=== PATIENT | female | born 1965 | race Asian ===

== ENCOUNTER 2018-10-07 15:53 | Inpatient (IN) | payer OTHER ==
[~2018-10-07] VITALS: Ht 165.1 cm; Wt 72.1 kg
[2018-10-07] MEDS ORDERED: CEFAZOLIN SOD 2 GM in D5W 50 ML IV ONE (16:45)
[2018-10-07] MEDS ORDERED: fentaNYL CITRATE/PF 100 MCG/2 ML AMP IVP PRN (18:30)
[2018-10-07] MEDS ORDERED: KETOROLAC TROMETHAMINE 30 MG VIAL IVP PRN (18:30)
[2018-10-07] MEDS ORDERED: ONDANSETRON HCL 4 MG/2 ML VIAL IVP PRN (18:30)
[2018-10-07] MEDS ORDERED: LIDOCAINE 2%, 20 ML MDV ONE (19:50)
[2018-10-07] MEDS ORDERED: LABETALOL 100 MG/ 20ML VIAL ONE (19:50)
[2018-10-07] MEDS ORDERED: KETOROLAC TROMETHAMINE 30 MG VIAL ONE (19:50)
[2018-10-07] MEDS ORDERED: NS IRRIG SOLN 1000 ML IR ONE (19:50)
[2018-10-07] MEDS ORDERED: fentaNYL CITRATE/PF 100 MCG/2 ML AMP ONE ×3 (19:50→20:55)
[2018-10-07] MEDS ORDERED: NEOSTIGMINE METHYLSULFATE 1 MG/ML, 10 ML VIAL ONE (19:50)
[2018-10-07] MEDS ORDERED: ONDANSETRON HCL 4 MG/2 ML VIAL ONE (19:50)
[2018-10-07] MEDS ORDERED: BUPIVACAINE /EPINEPHRINE/PF 0.25% 30 ML VIAL INJ ONE (19:50)
[2018-10-07] MEDS ORDERED: GLYCOPYRROLATE 0.2 MG/ML VIAL ONE (19:50)
[2018-10-07] MEDS ORDERED: BUPIVACAINE /PF 0.5% 30 ML VIAL ONE (19:50)
[2018-10-07] MEDS ORDERED: LR 1,000 ML IV.SOLN IV ONE (19:50)
[2018-10-07] MEDS ORDERED: SEVOFLURANE 15 MIN GAS INH ONE (19:50)
[2018-10-07] MEDS ORDERED: PROPOFOL 200MG/ 20ML VIAL (DIPRIVAN) IV ONE (19:50)
[2018-10-07] MEDS ORDERED: PHENYLEPHRINE HCL 10 MG/ML VIAL (NEOSYNEPHRINE) ONE (19:50)
[2018-10-07] MEDS ORDERED: MIDAZOLAM HCL 5 MG/ML VIAL (VERSED) IV ONE (19:50)
[2018-10-07] MEDS ORDERED: ROCURONIUM BROMIDE 10 MG/ML (ZEMURON) ONE (19:50)
[2018-10-07] MEDS ORDERED: NS 1000 ML IV.SOLN IV ONE (19:50)
[2018-10-07] MEDS ORDERED: HYDROmorphone 1 MG INJ. 1 MG/ML AMPUL IM PRN (20:00)
[2018-10-07] MEDS: fentaNYL CITRATE/PF 100 MCG/2 ML AMP IVP PRN ×2 (20:25→20:50)
[2018-10-07 21:00] VITALS: BP_SYST 113
[2018-10-07] MEDS ORDERED: cefOXitin SODIUM 2 GM in D5W 100 ML IV SCH ×4 (22:00)
[2018-10-07] MEDS ORDERED: cefOXitin 1 GM IVPB PREMIX 100 ML IV ONE (22:12)
[2018-10-07] MEDS: HYDROcodone/ACETAMIN 5-325 MG TAB (NORCO/ VICODIN) PO PRN (23:44)
[2018-10-08] MEDS: ONDANSETRON HCL 4 MG/2 ML VIAL IM PRN ×2 (03:19→10:19)
[2018-10-08 07:02] LABS: ALBUMIN 3.2 g/dL (3.4-4.8); CALCIUM 8.8 mg/dL (8.4-11.0); CREATININE 0.69 mg/dL (0.55-1.30); POTASSIUM 3.9 mmol/L (3.5-5.1); TOTAL BILIRUBIN 0.8 mg/dL (0.0-1.0)
[2018-10-08] MEDS ORDERED: cefOXitin SODIUM 2 GM in D5W 100 ML IV ONE ×6 (07:45→08:30)
[2018-10-08 08:00] VITALS: BP_SYST 146
[2018-10-08] MEDS: HYDROcodone/ACETAMIN 5-325 MG TAB (NORCO/ VICODIN) PO PRN ×3 (08:35→19:39)
[2018-10-08 12:45] VITALS: BP_SYST 128
[2018-10-08] MEDS ORDERED: cefOXitin SODIUM 2 GM in D5W 100 ML IV SCH (14:00)
[2018-10-08 16:40] VITALS: BP_SYST 122
[2018-10-08] MEDS ORDERED: HYDROmorphone 1 MG INJ. 1 MG/ML AMPUL IVP PRN (17:15)
[2018-10-08] MEDS ORDERED: ONDANSETRON HCL 4 MG/2 ML VIAL IVP PRN (17:15)
[2018-10-08 21:23] VITALS: BP_SYST 116
== END 2018-10-08 22:05 | disposition home or self-care (01) | DRG 418 ==
LOC: SDS 15:53 → SMU 16:33 → SDS 16:33 → SMU 21:16 → SDS 10-08 09:59
PROVIDERS: ADMIT Surgery; ATTEND Surgery
PROC: 3E0T3BZ Introduction of Anesthetic Agent into Peripheral Nerves and Plexi, Percutaneous Approach (ICD-10-PCS; 2018-10-07)
PROC: 0FT44ZZ Resection of Gallbladder, Percutaneous Endoscopic Approach (ICD-10-PCS; principal; 2018-10-07 17:30)
DX: K80.00 Calculus of gallbladder with acute cholecystitis without obstruction (principal); K82.1 Hydrops of gallbladder; I48.0 Paroxysmal atrial fibrillation; I10 Essential (primary) hypertension
CPT/HCPCS: 36415; 80053; 88304; 93005; C1727; J0690; J0694; J1170; J1885; J2001; J2250; J2370; J2405; J2704; J2710; J3010; J3490; J7030; J7060; J7120